=== PATIENT | male | born 1970 | race Caucasian/White ===

== ENCOUNTER 2017-07-15 09:38 | Emergency (ER) | payer OTHER ==
[~2017-07-15] VITALS: Ht 190.5 cm; Wt 97.7 kg
[2017-07-15 10:02] VITALS: BP 140/100
== END 2017-07-15 10:24 | disposition home or self-care (01) | DRG 605 ==
LOC: ED 09:38
DX: S61.231A Puncture wound without foreign body of left index finger without damage to nail, initial encounter (principal); W46.1XXA Contact with contaminated hypodermic needle, initial encounter; Y93.F9 Activity, other caregiving; Y92.238 Other place in hospital as the place of occurrence of the external cause; Y99.0 Civilian activity done for income or pay